=== PATIENT | male | born 1950 | race Caucasian/White ===

== ENCOUNTER → 2021-02-12 | Outpatient (CLI) | payer OTHER, BC ==
[~2021-02-12] MED LIST: ASPIRIN81 M2 PO; CIPROFLOXACIN500 M1 PO; KADIAN100 MG PO; MORPHINE SULFAT15 M3 PO; MULTIVITAMINS PO; NEXIUM40 MG PO; PROAIR HFA8.5 GM INH; TAMSULOSIN HCL0.4 M1 PO; TORADOL 10 MG T10 MG PO; VALTREX1000 MG PO; ZYRTEC-D TABLE1 EAC1 PO
== END ==
LOC: SJCVC 11:53 → SJCVCIMAG 11:53
PROVIDERS: ATTEND Internal Medicine Cardiovascular Disease
DX: I65.23 Occlusion and stenosis of bilateral carotid arteries (principal); R94.31 Abnormal electrocardiogram [ECG] [EKG]; I45.10 Unspecified right bundle-branch block; I10 Essential (primary) hypertension; E78.5 Hyperlipidemia, unspecified; I35.1 Nonrheumatic aortic (valve) insufficiency; I38 Endocarditis, valve unspecified; R53.83 Other fatigue; R42 Dizziness and giddiness; I42.8 Other cardiomyopathies; J45.909 Unspecified asthma, uncomplicated; Z90.49 Acquired absence of other specified parts of digestive tract; Z88.0 Allergy status to penicillin; Z88.5 Allergy status to narcotic agent; Z88.8 Allergy status to other drugs, medicaments and biological substances; Z79.82 Long term (current) use of aspirin; Z79.899 Other long term (current) drug therapy

== ENCOUNTER → 2021-03-04 | Outpatient (CLI) | payer OTHER, BC | LOC: SJCVCIMAG 07:37 | PROVIDERS: ATTEND Internal Medicine Cardiovascular Disease | DX: I08.8 Other rheumatic multiple valve diseases (principal); I45.10 Unspecified right bundle-branch block; I49.3 Ventricular premature depolarization; I10 Essential (primary) hypertension; R06.00 Dyspnea, unspecified; R53.83 Other fatigue; R42 Dizziness and giddiness; I25.10 Atherosclerotic heart disease of native coronary artery without angina pectoris; Z79.82 Long term (current) use of aspirin; Z79.899 Other long term (current) drug therapy ==

== ENCOUNTER → 2021-06-11 | Outpatient (CLI) | payer OTHER, BC | LOC: SJCVC 10:28 | PROVIDERS: ATTEND Internal Medicine Cardiovascular Disease | DX: I42.7 Cardiomyopathy due to drug and external agent (principal) ==